=== PATIENT | male | born 1965 | race Caucasian/White ===

== ENCOUNTER 2016-11-28 20:12 | Emergency (ER) | payer MEDICAID ==
[2016-11-28 20:37] VITALS: TEMP 97.3
[2016-11-28] MEDS ORDERED: ONDANSETRON 4 MG/2 ML VIAL IVP ONE (20:46)
[2016-11-28] MEDS ORDERED: NS 1,000 ML IV ONE (20:46)
[2016-11-28] MEDS ORDERED: HYDROmorphONE/DILAUDID 1 MG/ML SYR IVP ONE (20:46)
--- NOTE | 2016-11-28 20:48 | EDPHY ---
H & P Stated Complaint: LLQ ABD PAIN AFTER EATING SOMETHING Time Seen by Provider: 11/28/16 20:43 HPI/ROS: CHIEF COMPLAINT: Left lower quadrant pain HISTORY OF PRESENT ILLNESS: Patient is a 51-year-old man who comes to the emergency department complaining of left lower quadrant pain that began this morning. He has not had a fever. He has vomited twice nonbloody. He has also had nonbloody diarrhea. He has never had this pain before. He is obese but denies any other significant medical history. No history of surgeries. He does not take any medications. REVIEW OF SYSTEMS: Constitutional: denies: chills, fever, recent illness, recent injury EENTM: denies: blurred vision, double vision, nose congestion Respiratory: denies: cough, shortness of breath Cardiac: denies: chest pain, irregular heart rate, lightheadedness, palpitations Gastrointestinal/Abdominal: See HPI Genitourinary: denies: dysuria, frequency, hematuria, pain Musculoskeletal: denies: joint pain, muscle pain Skin: denies: lesions, rash, jaundice, bruising Neurological: denies: headache, numbness, paresthesia, tingling, dizziness, weakness Hematologic/Lymphatic: denies: blood clots, easy bleeding, easy bruising Immunologic/allergic: denies: HIV/AIDS, transplant EXAM: GENERAL: Obese, moderate distress HEAD: Atraumatic, normocephalic. EYES: Pupils equal round and reactive to light, extraocular movements intact, sclera anicteric, conjunctiva are normal. ENT: TMs normal, nares patent, oropharynx clear without exudates. Moist mucous membranes. NECK: Normal range of motion, supple without lymphadenopathy or JVD. LUNGS: Breath sounds clear to auscultation bilaterally and equal. No wheezes rales or rhonchi. HEART: Regular rate and rhythm without murmurs, rubs or gallops. ABDOMEN: Left lower quadrant tenderness, no rebound or guarding BACK: No CVA tenderness, no spinal tenderness, step-offs or deformities EXTREMITIES: Normal range of motion, no pitting or edema. No clubbing or cyanosis. NEUROLOGICAL: Cranial nerves II through XII grossly intact. Normal speech, normal gait. 5/5 strength, normal movement in all extremities, normal sensation PSYCH: Normal mood, normal affect. SKIN: Warm, dry, normal turgor, no visible rashes or lesions. Source: Patient Exam Limitations: No limitations - Personal History Current Tetanus/Diphtheria Vaccine: Yes Current Tetanus Diphtheria and Acellular Pertussis (TDAP): Yes - Medical/Surgical History Hx Asthma: No Hx Chronic Respiratory Disease: No Hx Diabetes: No Hx Cardiac Disease: No Hx Renal Disease: No Hx Cirrhosis: No Hx Alcoholism: Yes Hx HIV/AIDS: No Hx Splenectomy or Spleen Trauma: No Other PMH: HTN, HEP-C, ETOH ABUSE IN P[AST, BACK ISSUES - Family History Significant Family History: No pertinent family hx - Social History Smoking Status: Light smoker Alcohol Use: Sober Drug Use: None Constitutional: Initial Vital Signs Temperature (C) 36.3 C 11/28/16 20:13 Heart Rate 85 11/28/16 20:13 Respiratory Rate 18 11/28/16 20:13 Blood Pressure 184/118 H 11/28/16 20:13 O2 Sat (%) 93 11/28/16 20:13 O2 Delivery Mode Room Air O2 (L/minute) 2 Allergies/Adverse Reactions: penicillin G Allergy (Verified 11/28/16 20:37) Home Medications: Medication Instructions Recorded Gabapentin 600 mg PO 11/28/16 Lisinopril [Zestril 40 mg (*)] 40 mg PO 11/28/16 Ondansetron Odt [Zofran Odt 4 mg 4 mg PO Q4 PRN #20 tab 11/28/16 (RX)] Tamsulosin HCl [Flomax] 0.4 mg PO DAILY #10 cap 11/28/16 oxyCODONE/APAP 5/325 [Percocet 1 - 2 tab PO Q4H PRN #20 tab 11/28/16 5/325] Medical Decision Making - Diagnostics EKG Interpretation: An EKG obtained and was read and documented in trace view. Please see trace view for full reading and report. Sinus rhythm, right bundle branch block and left anterior fascicular block with repolarization abnormality, ED Course/Re-evaluation: 11:00 p.m. we discussed the patient's CT results. He is currently pain free. I will send him home with a prescription for pain medication, Zofran and Flomax. He understands and agrees with this plan. He will follow up with Urology. We discussed that this may take several days or weeks. We discussed indications for returning. Differential Diagnosis: Partial list of the Differential diagnosis considered include but were not limited to; kidney stone, diverticulitis and although unlikely based on the history and physical exam, I also considered appendicitis, obstruction, volvulus , ischemia, aneurysm. I discussed these differential diagnoses and the plan with the patient as well as the usual and expected course. The patient understands that the diagnosis is provisional and that in medicine we are not always correct and that further workup is often warranted. Usual and customary warnings were given. All of the patient's questions were answered. The patient was instructed to return to the emergency department should the symptoms at all worsen or return, otherwise to followup with the physician as we discussed. - Data Points Laboratory Results: Laboratory Results 11/28/16 20:20 11/28/16 20:20 Medications Given: Discontinued Medications Hydromorphone HCl (Dilaudid) 1 mg IVP EDNOW ONE Stop: 11/28/16 20:47 Last Admin: 11/28/16 20:59 Dose: 1 mg Sodium Chloride (Ns) 1,000 mls @ 0 mls/hr IV ONCE ONE; Wide Open PRN Reason: Protocol Stop: 11/28/16 20:47 Last Admin: 11/28/16 20:55 Dose: 1,000 mls Ondansetron HCl (Zofran) 4 mg IVP EDNOW ONE Stop: 11/28/16 20:47 Last Admin: 11/28/16 20:57 Dose: 4 mg Tamsulosin HCl (Flomax) 0.4 mg PO EDNOW ONE Stop: 11/28/16 23:11 Last Admin: 11/28/16 23:10 Dose: 0.4 mg Departure - Departure Disposition: Home, Routine, Self-Care Clinical Impression: Kidney stone on left side Condition: Fair Instructions: Kidney Stones (ED) Referrals: Patient,NotPresent [Unknown] - As per Instructions Prescriptions: Ondansetron Odt [Zofran Odt 4 mg (RX)] 4 mg PO Q4 PRN #20 tab PRN Reason: Nausea & Vomiting oxyCODONE/APAP 5/325 [Percocet 5/325] 1 - 2 tab PO Q4H PRN #20 tab PRN Reason: Pain, Severe Tamsulosin HCl [Flomax] 0.4 mg PO DAILY #10 cap
[2016-11-28 20:50] LABS: % IMMATURE GRANULYOCYTES 0.7 % (0.0-1.1); ADD DIFF? NO; ADD MORPH? NO; ADD SCAN? NO; ATYPICAL LYMPHOCYTE FLAG 0 (0-99); FRAGMENT RBC FLAG 0 (0-99); HEMATOCRIT 54.3 % (40.0-51.0); HEMOGLOBIN 19.6 g/dL (13.7-17.5); LEFT SHIFT FLG 10 (0-99); LIPEMIA HEMOLYSIS FLAG 90 (0-99); MEAN CELL HEMOGLOBIN 30.6 pg (27.9-34.1); MEAN CELL HEMOGLOBIN CONCENTR. 36.1 g/dL (32.4-36.7); MEAN CELL VOLUME 84.8 fL (81.5-99.8); MEAN PLATELET VOLUME 9.9 fL (8.7-11.7); PLATELET CLUMPS FLAG 0 (0-99); PLATELET COUNT 261 10^3/uL (150-400); RED CELL DISTRIBUTION WIDTH 12.9 % (11.5-15.2)
[2016-11-28 21:00] VITALS: RESP 16
[2016-11-28] MEDS ORDERED: IOPAMIDOL (ISOVUE-300) 100 ML BTL ONE (21:10)
--- NOTE | 2016-11-28 21:14 | CPEKG ---
Heart Rate: 86 RR Interval: 698 P-R Interval: 176 QRSD Interval: 154 QT Interval: 424 QTC Interval: 508 P [place]: 37 QRS [place]: -20 T Wave [place]: 32 EKG Severity - ABNORMAL ECG - EKG Impression: SINUS RHYTHM EKG Impression: RBBB AND LAFB EKG Impression: repolarization abnormality Electronically Signed By: Gerry Chiang 28-Nov-2016 21:14:37
[2016-11-28 21:15] LABS: ALANINE AMINOTRANSFERASE 87 IU/L (21-72); ALKALINE PHOSPHATASE 103 IU/L (38-126); ANION GAP 16 mEq/L (8-16); ASPARTATE AMINOTRANSFERASE 69 IU/L (17-59); BILIRUBIN,TOTAL 1.6 mg/dL (0.1-1.4); BILIRUBIN-CONJUGATED 0.7 mg/dL (0.0-0.5); BILIRUBIN-UNCONJUGATED 0.9 mg/dL (0.0-1.1); CALCIUM 10.4 mg/dL (8.5-10.4); CARBON DIOXIDE 21 mEq/l (22-31); CHLORIDE 102 mEq/L (97-110); CREATININE 1.2 mg/dL (0.7-1.3); ETHANOL SERUM < 10 mg/dL (0-10); GLOMERULAR FILTRATION RATE > 60; GLUCOSE 118 mg/dL (70-100); POTASSIUM 3.7 mEq/L (3.5-5.2); SODIUM 139 mEq/L (134-144); TOTAL PROTEIN 8.4 g/dL (6.3-8.2)
[2016-11-28 22:03] LABS: COLOR YELLOW; LEUKOCYTE ESTERASE,URINE NEGATIVE (NEGATIVE); NITRITE,URINE NEGATIVE (NEGATIVE)
[2016-11-28 22:06] LABS: MUCUS TRACE /lpf (NONE-1+); RBC,URINE 50-182 /hpf (0-3)
[2016-11-28] MEDS ORDERED: TAMSULOSIN HCL 0.4 MG CAP PO ONE ×2 (23:10→23:18)
[2016-11-28 23:39] VITALS: BP 158/89; PULSE 86; O2SAT 96
== END 2016-11-28 23:15 | disposition home or self-care (01) ==
DX: N20.0 Calculus of kidney (principal); I10 Essential (primary) hypertension; F17.200 Nicotine dependence, unspecified, uncomplicated
CPT/HCPCS: 96374; G0480; J1170; J2405; Q9967

== ENCOUNTER 2017-03-19 07:04 | Observation (INO) | payer MEDICAID ==
--- NOTE | 2017-03-19 07:16 | CPEKG ---
Heart Rate: 88 RR Interval: 682 P-R Interval: 156 QRSD Interval: 138 QT Interval: 380 QTC Interval: 460 P [place]: 17 QRS [place]: -37 T Wave [place]: 20 EKG Severity - ABNORMAL ECG - EKG Impression: SINUS RHYTHM EKG Impression: PROBABLE LEFT ATRIAL ABNORMALITY EKG Impression: RIGHT BUNDLE BRANCH BLOCK Electronically Signed By: Kaiser Chiu 19-Mar-2017 08:02:35
[2017-03-19] MEDS ORDERED: ASPIRIN 81 MG CHEWABLE TAB PO ONE (07:23)
[2017-03-19 07:44] LABS: % IMMATURE GRANULYOCYTES 0.6 % (0.0-1.1); ABSOLUTE IMMATURE GRANULOCYTES 0.08 10^3/uL (0.00-0.10); ADD DIFF? NO; ADD MORPH? NO; ADD SCAN? NO; ATYPICAL LYMPHOCYTE FLAG 0 (0-99); FRAGMENT RBC FLAG 0 (0-99); HEMATOCRIT 50.8 % (40.0-51.0); HEMOGLOBIN 17.8 g/dL (13.7-17.5); LEFT SHIFT FLG 0 (0-99); LIPEMIA HEMOLYSIS FLAG 90 (0-99); MEAN CELL HEMOGLOBIN 29.7 pg (27.9-34.1); MEAN CELL VOLUME 84.8 fL (81.5-99.8); MEAN PLATELET VOLUME 9.5 fL (8.7-11.7); PLATELET CLUMPS FLAG 0 (0-99); PLATELET COUNT 203 10^3/uL (150-400); RED BLOOD CELL COUNT 5.99 10^6/uL (4.40-6.38); RED CELL DISTRIBUTION WIDTH 13.5 % (11.5-15.2)
[2017-03-19 07:50] LABS: ANION GAP 10 mEq/L (8-16); CALCIUM 9.4 mg/dL (8.5-10.4); CARBON DIOXIDE 24 mEq/l (22-31); CHLORIDE 107 mEq/L (97-110); CREATININE 0.8 mg/dL (0.7-1.3); ETHANOL SERUM < 10 mg/dL (0-10); GLOMERULAR FILTRATION RATE > 60; GLUCOSE 101 mg/dL (70-100); POTASSIUM 4.3 mEq/L (3.5-5.2); SODIUM 141 mEq/L (134-144)
[2017-03-19 08:01] LABS: TROPONIN I < 0.012 ng/mL (0.000-0.034)
--- NOTE | 2017-03-19 08:01 | EDPHY ---
H & P Time Seen by Provider: 03/19/17 07:59 HPI/ROS: Chief complaint. Chest pain HPI. Patient is a 52-year-old male presents with chest discomfort that began at midnight. He describes as left anterior chest radiating through to his back. He describes as squeezing and pressure. It is worse both with deep breathing and with exertion. Not short of breath. No recent fever or cough. No abdominal pain or unusual leg pain or swelling. No similar symptoms previously. 2 weeks ago stent placed in the ureter for kidney stone. He has been drinking alcohol little bit to help with the chest discomfort since midnight. ROS Constitutional. no fever/chills, no weakness Eyes. no problems with vision ENT. no sore throat, no nasal drainage Cardiovascular. Chest pain Respiratory. no shortness of breath, no cough Abdominal. no abdominal pain, no nausea/vomiting, no diarrhea . no problems urinating MS. no calf pain/swelling, no neck/back pain, no joint pain Skin. no rash Lymph. no swollen glands Neuro. no headache, no dizziness, no difficulty walking or with speech Past Medical/Surgical History: Past medical history is significant for hypertension, hep C, alcoholism, chronic back pain Social History: Single, daily smoker, recent alcohol Smoking Status: Light smoker Physical Exam: General Appearance: Alert well-developed male mild distress vital signs are stable Eyes: Pupils equal and round no pallor or injection. ENT, Mouth: Mucous membranes are moist. Respiratory: There are no retractions, lungs are clear to auscultation. Cardiovascular: Regular rate and rhythm. Gastrointestinal: Abdomen is soft and nontender, no masses, bowel sounds normal. Neurological: Awake and alert, sensory and motor exams grossly normal. Skin: Warm and dry, no rashes. Musculoskeletal: Neck is supple nontender. Extremities symmetrical, full range of motion. Psychiatric: Patient is oriented X 3, there is no agitation. Constitutional: Initial Vital Signs Temperature (C) 36.6 C 03/19/17 07:09 Heart Rate 87 03/19/17 07:09 Respiratory Rate 18 03/19/17 07:09 Blood Pressure 150/96 H 03/19/17 07:09 O2 Sat (%) 95 03/19/17 07:09 O2 Delivery Mode Room Air Allergies/Adverse Reactions: penicillin G Allergy (Verified 11/28/16 20:37) Home Medications: Medication Instructions Recorded Gabapentin 600 mg PO 11/28/16 Lisinopril [Zestril 40 mg (*)] 40 mg PO 11/28/16 Ondansetron Odt [Zofran Odt 4 mg 4 mg PO Q4 PRN #20 tab 11/28/16 (RX)] Tamsulosin HCl [Flomax] 0.4 mg PO DAILY #10 cap 11/28/16 oxyCODONE/APAP 5/325 [Percocet 1 - 2 tab PO Q4H PRN #20 tab 11/28/16 5/325] Medical Decision Making - Diagnostics EKG Interpretation: EKG interpreted by me shows a normal sinus rhythm with normal interval. Left axis deviation and right bundle branch block and probable left anterior fascicular block. No significant ST elevation or depression. No arrhythmia. The rate is 88 Not changed from previous EKG in November 2016 Imaging Results: Imaging Impressions Chest X-Ray 03/19/17 07:39 Impression: Possible pulmonary venous hypertension. Consider obtaining a routine PA and lateral chest when the patient is clinically able. Results discussed with Dr. Kaiser Chiu. Chest x-ray reviewed by me shows probable pulmonary hypertension. No pneumonia or pneumothorax. Discussion with Dr. Ferguson, radiology, who agrees with the thought of pulmonary hypertension Procedures: IV normal saline, monitor. Aspirin in the ED ED Course/Re-evaluation: On re-evaluation at 8:30 a.m. patient is stable though continues to have chest discomfort. The patient and I discussed imaging and lab results. We discussed treatment plan including recommendation for admission for further evaluation for his continuing chest discomfort. He expresses understanding and agreement I consulted and discussed the case with Dr. karen Camilo, hospitalist, who agrees to the admission Differential Diagnosis: I have considered pulmonary hypertension, acute coronary syndrome, pneumonia, pulmonary embolus. I am concerned the patient is having acute coronary syndrome - Data Points Laboratory Results: Laboratory Results 03/19/17 07:15 03/19/17 07:15 03/19/17 03/19/17 03/19/17 07:23 07:15 07:15 WBC 13.52 10^3/uL H 10^3/uL (3.80-9.50) RBC 5.99 10^6/uL 10^6/uL (4.40-6.38) Hgb 17.8 g/dL H g/dL (13.7-17.5) Hct 50.8 % % (40.0-51.0) MCV 84.8 fL fL (81.5-99.8) MCH 29.7 pg pg (27.9-34.1) MCHC 35.0 g/dL g/dL (32.4-36.7) RDW 13.5 % % (11.5-15.2) Plt Count 203 10^3/uL 10^3/uL (150-400) MPV 9.5 fL fL (8.7-11.7) Neut % (Auto) 75.8 % H % (39.3-74.2) Lymph % (Auto) 12.6 % L % (15.0-45.0) Martin % (Auto) 8.8 % % (4.5-13.0) Eos % (Auto) 1.6 % % (0.6-7.6) Baso % (Auto) 0.6 % % (0.3-1.7) Nucleat RBC Rel Count 0.0 % % (0.0-0.2) Absolute Neuts (auto) 10.24 10^3/uL H 10^3/uL (1.70-6.50) Absolute Lymphs (auto) 1.71 10^3/uL 10^3/uL (1.00-3.00) Absolute Monos (auto) 1.19 10^3/uL H 10^3/uL (0.30-0.80) Absolute Eos (auto) 0.22 10^3/uL 10^3/uL (0.03-0.40) Absolute Basos (auto) 0.08 10^3/uL 10^3/uL (0.02-0.10) Absolute Nucleated RBC 0.00 10^3/uL 10^3/uL (0-0.01) Immature Gran % 0.6 % % (0.0-1.1) Immature Gran # 0.08 10^3/uL 10^3/uL (0.00-0.10) D-Dimer < 0.27 ug/mLFEU ug/mLFEU (0.00-0.50) Sodium 141 mEq/L mEq/L (134-144) Potassium 4.3 mEq/L mEq/L (3.5-5.2) Chloride 107 mEq/L mEq/L (97-110) Carbon Dioxide 24 mEq/l mEq/l (22-31) Anion Gap 10 mEq/L mEq/L (8-16) BUN 14 mg/dL mg/dL (7-23) Creatinine 0.8 mg/dL mg/dL (0.7-1.3) Estimated GFR > 60 Glucose 101 mg/dL H mg/dL (70-100) Calcium 9.4 mg/dL mg/dL (8.5-10.4) Troponin I < 0.012 ng/mL ng/mL (0.000-0.034) Ethyl Alcohol < 10 mg/dL mg/dL (0-10) Medications Given: Discontinued Medications Aspirin (Aspirin) 324 mg PO EDNOW ONE Stop: 03/19/17 07:24 Last Admin: 03/19/17 07:26 Dose: 324 mg Departure - Departure Disposition: [facility] Clinical Impression: Chest pain Qualifiers: Chest pain type: unspecified Qualified Code(s): R07.9 - Chest pain, unspecified Condition: Fair
[2017-03-19] MEDS ORDERED: ACETAMINOPHEN 325 MG TAB PO PRN (08:37)
[2017-03-19] MEDS ORDERED: ONDANSETRON 4 MG/2 ML VIAL IVP PRN (08:37)
[2017-03-19] MEDS ORDERED: ONDANSETRON DISINTEGRATING 4 MG TAB PO PRN (08:37)
[2017-03-19] MEDS ORDERED: LIDOCAINE 1% 300 MG/30 ML SDV ONE (13:25)
[2017-03-19] MEDS ORDERED: MIDAZOLAM 2 MG/2 ML VIAL ONE ×2 (13:25)
[2017-03-19] MEDS ORDERED: fentaNYL 100 MCG/2 ML INJ ONE (13:25)
[2017-03-19] MEDS ORDERED: IOPAMIDOL (ISOVUE-370) 150 ML BTL IV ONE (13:25)
[2017-03-19] MEDS ORDERED: NITROGLYCERIN 0.4 MG BTL SL PRN (13:42)
[2017-03-19] MEDS ORDERED: TEMAZEPAM 15 MG CAP PO PRN (13:42)
[2017-03-19] MEDS: NICOTINE 21 MG/24 HR PATCH TD SCH (13:55)
--- NOTE | 2017-03-19 13:57 | CPR ---
[f rep st] NONINVASIVE CARDIAC PROCEDURE REPORT DATE OF PROCEDURE: 03/19/2017 PROCEDURE PERFORMED: Treadmill stress test. REASON FOR TEST: 1. Chest pain. 2. Family history of CO at age 60, grandfather. ORDERING PHYSICIAN: Molly Garcia MD, Hospitalist. SUPERVISING PHYSICIAN: Nura Hearn MD RESTING: Resting EKG shows a regular sinus rhythm with right bundle branch block. Resting heart rat e 87, and regular. He is hypertensive, blood pressure 152/92. STRESS PORTION: He was exercised according to the Randolph protocol for a total of 3 minutes and 56 sec onds. Peak blood pressure 164/98, peak heart rate 100, exercise stopped due to chest pain rated 4/10 . There were no EKG changes. RECOVERY: The chest pain subsided within 1 minute of rest. Resting heart rate 100, resting blood pr essure 148/98. No EKG changes. He is stable to return to his room. RECOMMENDATION: For Lexiscan nuclear stress test versus cardiac angiogram with Dr. Nura Hearn. [facility] discuss further with Dr. Nura Hearn. Chester Collins MD, Hospitalist, was notified of test resul ts. She is in agreement with this plan. /[id number]/MODL
--- NOTE | 2017-03-19 15:12 | GHP ---
[f rep st] HISTORY AND PHYSICAL DATE OF ADMISSION: 03/19/2017 CHIEF COMPLAINT: Chest pain. HISTORY OF PRESENT ILLNESS: A 52-year-old male with a history of hepatitis C, alcoholism, who presen ts after being woken up the morning of presentation with severe chest pain of the left side of his ch est. The patient reports that he was in his normal state of health the evening prior with normal int wei and exertional capacity, went to sleep and awoke with a heavy, tightening sensation on the left s javi of his chest. The patient attempted to drink a pint of vodka to see if it could help with the pa in and it was unsuccessful; therefore, presented to the emergency department for evaluation. Denies any associated shortness of breath with the pain. Does report pleuritic component occasionally and t he sensation that he could exacerbate the pain while moving his left arm and/or shoulder. Denies any associated nausea, diaphoresis. Denies any diarrhea, dysuria, hematuria, lower extremity edema, isis lgias, arthralgias. Denies any headache or dizziness. Denies palpitations. PAST MEDICAL HISTORY: 1. Hepatitis C status post interferon. 2. Hypertension. 3. Alcoholism. 4. Chronic back pain. SOCIAL HISTORY: Positive for a pack a day smoking. Patient is currently in alcohol and drug treatme nt program so has been sober with the exception of the vodka he drink the morning of presentation. FAMILY HISTORY: Negative for coronary artery disease. Does have relatives older in life with diagno ses of heart disease. REVIEW OF SYSTEMS: A 10-point review of systems is negative with the exception of that reported in t he HPI. PHYSICAL EXAMINATION: VITAL SIGNS: Blood pressure 153/97, heart rate 96, respiratory rate 24, 95% o n room air, 36.7. GENERAL: This is a large, middle-aged male in no acute distress. HEENT: Notable for moist mucous membranes. Eye exam is negative for any icterus. CARDIAC: Patient is regular rat e and rhythm. A quiet systolic murmur is appreciated. PULMONARY: Good respiratory effort. Clear t o auscultation bilaterally. GASTROINTESTINAL: The patient is obese. Has positive bowel sounds. MU SCULOSKELETAL: Negative for any lower extremity edema. Patient did have reproducible chest pain on deep palpation at his mid clavicular line on his left chest. SKIN: Negative for any rashes. NEUROL OGIC: He is alert and oriented x3. PSYCHIATRIC: He is pleasant and cooperative on interview and ex amination. DATA: Troponin less than 0.012. Creatinine 0.8. White count 13.5, platelets of 203. The EKG, whic h I personally reviewed and interpreted, showed no acute ST-T changes, sinus rhythm, normal access. Chest x-ray, which I personally reviewed and interpreted, showed no acute infiltrates or edema. ASSESSMENT AND PLAN: This is a 52-year-old male presenting with left-sided chest pain. 1. Acute chest pain. The patient is obese and has hypertension. Smokes a pack of cigarettes a day and a remote family history of heart disease. So has several risk factors for cardiac ischemia. The pain and the reproducible pain are atypical obviously. Will cycle troponins and send for treadmill testing if he rules out. 2. Tobacco abuse. Will write for a nicotine patch. 3. Alcohol abuse. The patient is actively in a program which monitors alcohol and drug intake in ex change for housing and work. 4. Acute leukocytosis. Patient does not have a concerning review for occult infection. May be stre ss related to the acute presentation in the ED. Will recheck in the morning. Will not pursue additi onal diagnostics as the patient remains afebrile and without complaint. PROPHYLAXIS: With Lovenox. DIET: Cardiac. DISPOSITION: I expect in less than 2 midnights if the patient rules out and has negative stress test ing. I have discussed the case with the emergency room physician. Patient will be triaged to the [facility] for telemetry and care. /[id number]/MODL
[2017-03-19] MEDS: GABAPENTIN 400 MG CAP PO SCH ×2 (15:22→22:00)
--- NOTE | 2017-03-19 16:37 | CPR ---
[f rep st] NONINVASIVE CARDIAC PROCEDURE REPORT PROCEDURE: Treadmill stress test ORDERING PHYSICIAN: Molly Garcia MD, hospitalist. REASON FOR TEST: Chest pain. FINDINGS: Resting EKG shows a regular sinus rhythm with right bundle branch block. He is hypertensiv e. Resting heart rate /[id number]/MODL
[2017-03-20 03:48] LABS: % IMMATURE GRANULYOCYTES 0.5 % (0.0-1.1); ABSOLUTE IMMATURE GRANULOCYTES 0.05 10^3/uL (0.00-0.10); ADD DIFF? NO; ADD MORPH? NO; ADD SCAN? NO; ATYPICAL LYMPHOCYTE FLAG 0 (0-99); FRAGMENT RBC FLAG 0 (0-99); HEMATOCRIT 49.5 % (40.0-51.0); HEMOGLOBIN 17.3 g/dL (13.7-17.5); LEFT SHIFT FLG 0 (0-99); LIPEMIA HEMOLYSIS FLAG 90 (0-99); MEAN CELL HEMOGLOBIN 29.4 pg (27.9-34.1); MEAN CELL HEMOGLOBIN CONCENTR. 34.9 g/dL (32.4-36.7); MEAN PLATELET VOLUME 9.7 fL (8.7-11.7); PLATELET CLUMPS FLAG 0 (0-99); PLATELET COUNT 162 10^3/uL (150-400); RED BLOOD CELL COUNT 5.89 10^6/uL (4.40-6.38); RED CELL DISTRIBUTION WIDTH 13.2 % (11.5-15.2)
[2017-03-20 04:09] LABS: INR 1.01 (0.83-1.16); PROTIME(PATIENT) 13.2 SEC (12.0-15.0)
[2017-03-20 04:10] LABS: ANION GAP 9 mEq/L (8-16); APTT 27.1 SEC (23.0-38.0); CALCIUM 8.9 mg/dL (8.5-10.4); CARBON DIOXIDE 23 mEq/l (22-31); CHLORIDE 106 mEq/L (97-110); CHOLESTEROL 123 mg/dL (140-220); CHOLESTEROL/HDL RATIO 3.97 RATIO (1.00-4.97); CREATININE 0.7 mg/dL (0.7-1.3); GLOMERULAR FILTRATION RATE > 60; GLUCOSE 106 mg/dL (70-100); HIGH DENSITY LIPOPROTEIN 31 mg/dL (40-65); LDL/HDL RATIO 2.45 RATIO (1.00-3.64); LOW DENSITY LIPOPROTEIN 76 mg/dL (80-100); MAGNESIUM 1.8 mg/dL (1.6-2.3); NON-HIGH DENSITY LIPOPROTEIN 92 mg/dL (90-129); POTASSIUM 4.1 mEq/L (3.5-5.2); SODIUM 138 mEq/L (134-144); TRIGLYCERIDE 84 mg/dL (40-150); VERY LOW DENSITY LIPOPROTEINS 16 mg/dL (8-25)
[2017-03-20] MEDS ORDERED: ASPIRIN EC 325 MG TAB PO ONE (06:00)
[2017-03-20] MEDS ORDERED: FAMOTIDINE 20 MG TAB PO ONE (06:00)
[2017-03-20] MEDS ORDERED: NS 1,000 ML IV ONE (06:00)
[2017-03-20] MEDS ORDERED: diphenhydrAMINE 25 MG CAP PO ONE (06:00)
[2017-03-20] MEDS ORDERED: DIAZEPAM 5 MG TAB PO ONE (06:00)
[2017-03-20 07:24] VITALS: TEMP 97.8
--- NOTE | 2017-03-20 08:19 | PDPROPOC ---
Sedation Plan of Care Sedation Plan of Care: vital signs stable, mental status noted, patient educated of risks, benefits, alternatives, patient can tolerate sedation ASA Classification: ASA 2 Planned drugs: fentanyl, midazolam Mallampati Score: Class 2 Mallampati Reference Image: Patient passed 3-3-2 rule?: Yes
--- NOTE | 2017-03-20 08:19 | PDHPUP ---
History & Physical Update H&P update statement: This history and physical update is based on an assessment of the patient which was completed after admission or registration (within 24 hours), but prior to the surgery/procedure. H&P update: H&P reviewed & patient examined, no change in patient's condition since H&P completed
--- NOTE | 2017-03-20 08:22 | CPEKG ---
Heart Rate: 74 RR Interval: 811 P-R Interval: 172 QRSD Interval: 138 QT Interval: 416 QTC Interval: 462 P [place]: 13 QRS [place]: -43 T Wave [place]: 25 EKG Severity - ABNORMAL ECG - EKG Impression: SINUS RHYTHM EKG Impression: RBBB AND LAFB Electronically Signed By: Phuc Lyles 20-Mar-2017 08:40:20
[2017-03-20] MEDS ORDERED: fentaNYL 100 MCG/2 ML INJ ONE ×2 (08:33→09:02)
[2017-03-20] MEDS ORDERED: LIDOCAINE 1% 300 MG/30 ML SDV ONE (08:33)
[2017-03-20] MEDS ORDERED: IOPAMIDOL (ISOVUE-370) 150 ML BTL IV ONE (08:34)
[2017-03-20] MEDS ORDERED: MIDAZOLAM 2 MG/2 ML VIAL ONE (08:34)
[2017-03-20] MEDS ORDERED: LISINOPRIL 10 MG TAB PO SCH (09:00)
--- NOTE | 2017-03-20 09:01 | PDDXCAT ---
Diagnostic Cath Note - . Date: 03/20/17 Patient Problems: Problems Problem Status Onset Chest pain Acute
[2017-03-20] MEDS ORDERED: ATROPINE SULFATE 1 MG/10 ML SYR IVP PRN (09:49)
--- NOTE | 2017-03-20 11:08 | CPIP ---
[f rep st] INVASIVE CARDIAC PROCEDURE DATE OF PROCEDURE: 03/20/2017 PROCEDURE: Coronary angiography. Left ventriculography. INDICATION: Acute coronary syndrome. ACCESS: Patient was prepped and draped in sterile fashion. 1% lidocaine was used to anesthetize the right inguinal region. A 6[place]izen [place] introducer sheath was placed selectively into the right common fe moral artery via modified Seldinger technique. CORONARY ANGIOGRAPHY: A 6-Citizen [place] JL4 was advanced to the left main coronary artery, and images obtai adonay. The left main coronary artery trifurcated into LAD, ramus, and circumflex coronary arteries. T he left main coronary artery appeared normal. The left anterior descending coronary artery gave rise to one prominent diagonal branch. The left anterior descending coronary artery and its diagonal bra nch appeared normal. The ramus coronary artery was small, and there was a small [id number] a rtery fistula. The circumflex coronary artery is a large vessel but is nondominant. Circumflex scot nary artery gave rise to 2 OM branches. The circumflex coronary artery and its complement of OM bran ches appeared normal. A 6-Citizen [place] JR4 was advanced to the right coronary artery and was obtained. Th e right coronary artery was dominant. The right coronary artery appeared normal. LEFT VENTRICULOGRAPHY: A 6-Citizen [place] pigtail catheter was advanced into the left ventricle, and images obtained. Left ventricle is normal in size and had normal systolic function; estimated ejection frac tion 60%. COMPLICATIONS: None. CONCLUSIONS: 1. Normal coronary arteries. 2. Normal left ventricular systolic function. 3. Incidental small AV fistula noted. /[id number]/MODL
[2017-03-20 11:32] VITALS: O2SAT 96
[2017-03-20] MEDS: GABAPENTIN 400 MG CAP PO SCH (11:34)
[2017-03-20] MEDS: NICOTINE 21 MG/24 HR PATCH TD SCH (11:36)
[2017-03-20 12:35] VITALS: BP 149/95; PULSE 79; RESP 18
--- NOTE | 2017-03-20 14:08 | GDS ---
[f rep st] DISCHARGE SUMMARY DISCHARGE DIAGNOSES: Include: 1. Chest pain, thought noncardiac. 2. Alcohol abuse, in active treatment program. 3. Hepatitis C, status post interferon. 4. Hypertension. 5. Chronic back pain. HISTORY OF PRESENT ILLNESS: A 52-year-old male who presents with complaints of chest pain that began the morning of presentation. For details of patient's initial presentation, please see the History and Physical dated 03/19/2017. CONSULTATIVE SERVICES: Include Cardiology. PROCEDURES: On 03/19/2017, patient underwent cardiac stress test for which he developed active sympt oms. Stress test was discontinued, and the patient was taken to cardiac catheterization the followin g day, that showed no significant coronary artery disease. HOSPITAL COURSE: By issue: 1. Chest pain. The patient did rule out and, as above, underwent a terminated stress test and ultim ately cardiac cath that showed no concerning heart disease. The patient will be discharged on his no rmal home medications for hypertension and follow up with his outpatient primary care provider. 2. Hypertension. Patient's blood pressures have ranged in the 130s to 150s during this hospital sta y. He will be continued on his outpatient dosing of lisinopril. 3. Alcohol abuse. The patient is actively in a treatment program which provides both work and housi ng during active sobriety. He will be discharged back to this program on the day of this dictation. MEDICATIONS AT THE TIME OF TRANSFER: Please reference med rec printed on 03/20/2017. PENDING STUDIES: At the time of this dictation, are none. FOLLOWUP APPOINTMENTS: Include with his primary care provider in the next 3-4 weeks post disposition for general followup of his long-standing hypertension and active attempts at sobriety. I spent greater than 30 minutes in the planning and coordination of this discharge. /[id number]/MODL
--- NOTE | 2017-03-20 16:00 | ASMTCMCOM ---
CM Note CM Note Notes: 03/20/2017 Case Management Note: Met w/pt. Pt lives at a fdc house called the [facility]. Nura and Kelli are welfare case worker ([phone]) at the [facility]. Case Management left several messages w/Kelli today. Pt reports participating in a ready to work program in exchange for housing. Pt reports his Mother Zina ([phone]) lives with his sister Gauri ([phone]) in [place]. Both provide support for patient. Pt attends ETOH avoidance classes 2x/week through the [facility]. He also relies on his sponsor Yg for support. Pt attends therapy/counseling once a week in [place] on [facility] w/a provider named Yg Grove. Pt reports he is scheduled for eval by psychiatrist in March through the same practice as Yg Grove. Pt did not know the name of the psychiatrist. Pt well resourced through [facility]. Case Management d/c poc: Back to [facility] supports with medical follow up as directed. Family aware of d/c. Date Signed: 03/20/2017 03:59 PM Electronically Signed By:Ale Palacios RN
--- NOTE | 2017-03-20 16:01 | ASDISCHSUM ---
Discharge Information Plan Status:Home with No Needs Medically Cleared to Leave: Discharge Date:03/20/2017 02:07 PM CM D/C Disposition:Home, Routine, Self-Care ADT D/C Disposition:Home, Routine, Self-Care Projected Discharge Date:03/20/2017 02:07 PM Transportation at D/C:Family Discharge Delay Reason: Follow-Up Date:03/20/2017 02:07 PM Discharge Slot: Final Diagnosis: Placement Information Patient Contact Information Contact Name:JOSE M Relationship:Sister Address: Work Phone: [facility]: [facility] Phone: State/Zip Code: Email: Financial Information Financial Class: Primary Plan Desc:[employer]ICA[employer] Primary Plan Number:[id number] Secondary Plan Desc: Secondary Plan Number: Assessment Information [facility] CM Progress Note CM Note CM Note Notes: 03/20/2017 Case Management Note: Met w/pt. Pt lives at a group home house called the [facility]. Nura and Kelli are sample case porter ([phone]) at the [facility]. Case Management left several messages w/Kelli today. Pt reports participating in a ready to work program in exchange for housing. Pt reports his Mother Zina ([phone]) lives with his sister Gauri ([phone]) in [place]. Both provide support for patient. Pt attends ETOH avoidance classes 2x/week through the [facility]. He also relies on his sponsor Yg for support. Pt attends therapy/counseling once a week in [place] on [facility] w/a provider named Yg Grove. Pt reports he is scheduled for eval by psychiatrist in March through the same practice as Yg Grove. Pt did not know the name of the psychiatrist. Pt well resourced through [facility]. Case Management d/c poc: Back to [facility] supports with medical follow up as directed. Family aware of d/c. Date Signed: 03/20/2017 03:59 PM Electronically Signed By:Ale Palacios RN Intervention Information
== END 2017-03-20 14:07 | disposition home or self-care (01) ==
LOC: INTOOBSV 08:32 → F2W 10:11
PROVIDERS: ADMIT Hospitalist; ATTEND Hospitalist
PROC: B2111ZZ Fluoroscopy of Multiple Coronary Arteries using Low Osmolar Contrast (ICD-10-PCS; principal; 2017-03-19)
PROC: B2151ZZ Fluoroscopy of Left Heart using Low Osmolar Contrast (ICD-10-PCS; principal; 2017-03-19)
PROC: 4A023N7 Measurement of Cardiac Sampling and Pressure, Left Heart, Percutaneous Approach (ICD-10-PCS; principal; 2017-03-19)
DX: R07.9 Chest pain, unspecified (principal); F10.20 Alcohol dependence, uncomplicated; B19.20 Unspecified viral hepatitis C without hepatic coma; I10 Essential (primary) hypertension; M54.9 Dorsalgia, unspecified
CPT/HCPCS: 71010; 93005; 93017; 93458; G0378; C1760; G0480; J1644; J2250; J3010; Q9967

== ENCOUNTER → 2017-11-20 | Outpatient (CLI) | payer MEDICAID | LOC: FIMAGING 08:21 | PROVIDERS: ATTEND Family Medicine | DX: M12.88 Other specific arthropathies, not elsewhere classified, other specified site (principal); M99.73 Connective tissue and disc stenosis of intervertebral foramina of lumbar region ==

== ENCOUNTER 2018-04-30 07:10 | Emergency (ER) | payer MEDICAID ==
--- NOTE | 2018-04-30 07:20 | EDPHY ---
H & P Stated Complaint: cough n/v/d Time Seen by Provider: 04/30/18 07:19 HPI/ROS: CHIEF COMPLAINT: Cough, nausea, vomiting and diarrhea HISTORY OF PRESENT ILLNESS: The patient presents to the ED with a history of cough, vomiting and diarrhea for the past 4 days. The patient reports associated fever and myalgias. He has generalized abdominal discomfort. He denies any skin rash, numbness or weakness. He does complain of a mild frontal headache. The patient does have a history of alcohol abuse. He reports he has been sober since 06/10/2017. The patient also has a history of hepatitis-C. The patient does report that his sister was sick with similar symptoms last week. REVIEW OF SYSTEMS: A comprehensive 10 point review of systems is otherwise negative aside from elements mentioned in the history of present illness. Source: Patient - Personal History Current Tetanus Diphtheria and Acellular Pertussis (TDAP): Yes - Medical/Surgical History Hx Asthma: No Hx Chronic Respiratory Disease: No Hx Diabetes: No Hx Cardiac Disease: No Hx Renal Disease: No Hx Cirrhosis: No Hx Alcoholism: Yes Hx HIV/AIDS: No Hx Splenectomy or Spleen Trauma: No Other PMH: HTN, HEP-C, ETOH ABUSE IN P[AST, BACK ISSUES, kidney stones/ stent - Social History Smoking Status: Current every day smoker - Physical Exam Exam: General Appearance: Obese male, appears uncomfortable Eyes: Pupils equal and round no pallor or injection ENT, Mouth: Mucous membranes moist Respiratory: Slight tachypnea, rhonchorous breath sounds Cardiovascular: Tachycardic Gastrointestinal: Protuberant, no focal tenderness Neurological: 5/5 strength all 4 extremities Skin: Warm and dry, no rashes Musculoskeletal: Neck is supple nontender Extremities: symmetrical, full range of motion Constitutional: Initial Vital Signs Temperature (C) 37.3 C 04/30/18 07:13 Heart Rate 132 H 04/30/18 07:13 Respiratory Rate 20 04/30/18 07:13 Blood Pressure 164/114 H 04/30/18 07:13 O2 Sat (%) 19 L 04/30/18 07:13 O2 Delivery Mode Room Air Allergies/Adverse Reactions: penicillin G Allergy (Verified 04/30/18 07:13) Home Medications: Medication Instructions Recorded Gabapentin [Neurontin 400 MG (*)] 800 mg PO TID 10/02/17 Lisinopril [Zestril 10 mg (*)] 10 mg PO DAILY 03/19/17 Meloxicam [Mobic 15 mg] 15 mg PO DAILY 03/19/17 Albuterol [Proventil Inhaler HFA 1 - 2 puffs IH Q4H #1 mdi 04/30/18 (*)] Ondansetron Odt [Zofran Odt] 4 mg PO Q4PRN PRN #20 tab 04/30/18 Medical Decision Making - Diagnostics Imaging Results: Chest x-ray PA/lateral: Images reviewed by myself, negative for focal infiltrate however bronchitis is noted. ED Course/Re-evaluation: Medical decision making: The patient presents to the ED with cough, vomiting and diarrhea with a differential diagnosis which includes pneumonia, viral syndrome, gastroenteritis and dehydration. ED course: The patient did appear clinically dehydrated. He had an IV established. He received a L of normal saline. Patient was noted to be 91% on room air. He was slightly tachycardic. He was taken for a chest x-ray which demonstrates no evidence of an obvious pneumonia by my interpretation. The patient has no evidence of a significant metabolic derangement. The patient presents to the ED with a viral syndrome without evidence of an obvious bacterial source of infection. The patient is feeling better after receiving IV fluid rehydration. I do feel he is appropriate for outpatient management with albuterol and Zofran. He is currently 4 days into a viral illness and would not be a candidate for Tamiflu in the event he has influenza. The patient will be discharged home with customary aftercare instructions and return precautions. - Data Points Laboratory Results: Laboratory Results 04/30/18 07:30 04/30/18 07:30 04/30/18 04/30/18 07:30 07:30 WBC 13.69 10^3/uL H 10^3/uL (3.80-9.50) RBC 6.77 10^6/uL H 10^6/uL (4.40-6.38) Hgb 19.7 g/dL H g/dL (13.7-17.5) Hct 55.9 % H % (40.0-51.0) MCV 82.6 fL fL (81.5-99.8) MCH 29.1 pg pg (27.9-34.1) MCHC 35.2 g/dL g/dL (32.4-36.7) RDW 12.7 % % (11.5-15.2) Plt Count 145 10^3/uL L 10^3/uL (150-400) MPV 10.0 fL fL (8.7-11.7) Neut % (Auto) Not Reported Lymph % (Auto) Not Reported Hill % (Auto) Not Reported Eos % (Auto) Not Reported Baso % (Auto) Not Reported Nucleat RBC Rel Count Not Reported Absolute Neuts (auto) Not Reported Absolute Lymphs (auto) Not Reported Absolute Monos (auto) Not Reported Absolute Eos (auto) Not Reported Absolute Basos (auto) Not Reported Absolute Nucleated RBC Not Reported Immature Gran % Not Reported Seg Neutrophils % 66.0 % % Band Neutrophils % 18.4 % % Lymphocytes % 4.9 % % Monocytes % 10.7 % % Eosinophils % 0.0 % % Basophils % 0.0 % % Metamyelocytes % 0.0 % % Myelocytes % 0.0 % % Promyelocytes % 0.0 % % Blast Cells % 0.0 % % Immature Gran # Not Reported Absolute Seg Neuts 9.04 10^3/uL H 10^3/uL (1.70-6.50) Absolute Band Neuts 2.52 10^3/uL H 10^3/uL (0.00-0.70) Absolute Lymphocytes 0.67 10^3/uL L 10^3/uL (1.00-3.00) Absolute Monocytes 1.46 10^3/uL H 10^3/uL (0.30-0.80) Absolute Eosinophils 0.00 10^3/uL L 10^3/uL (0.03-0.40) Absolute Basophils 0.00 10^3/uL L 10^3/uL (0.02-0.10) Absolute Metamyelocyte 0.00 10^3/mL 10^3/mL (0.00-0.00) Absolute Myelocytes 0.00 10^3/mL 10^3/mL (0.00-0.00) Absolute Promyelocytes 0.00 10^3/uL 10^3/uL (0.00-0.00) Absolute Plasma Cells 0.00 10^3/uL 10^3/uL (0.00-0.00) Nucleated RBCs 0 /100 WBC /100 WBC (0-0) Absolute Blast Cells 0.00 10^3/uL 10^3/uL (0.00-0.00) Plasma Cells % 0.0 % % Platelet Estimate ADEQUATE (ADEQ) Sodium 139 mEq/L mEq/L (135-145) Potassium 3.5 mEq/L mEq/L (3.3-5.0) Chloride 99 mEq/L mEq/L (97-110) Carbon Dioxide 24 mEq/l mEq/l (22-31) Anion Gap 16 mEq/L H mEq/L (6-14) BUN 11 mg/dL mg/dL (7-23) Creatinine 0.8 mg/dL mg/dL (0.7-1.3) Estimated GFR > 60 Glucose 98 mg/dL mg/dL (70-100) Calcium 9.0 mg/dL mg/dL (8.5-10.4) Total Bilirubin 1.3 mg/dL mg/dL (0.1-1.4) Conjugated Bilirubin 0.5 mg/dL mg/dL (0.0-0.5) Unconjugated Bilirubin 0.8 mg/dL mg/dL (0.0-1.1) AST 85 IU/L H IU/L (17-59) ALT 75 IU/L H IU/L (21-72) Alkaline Phosphatase 62 IU/L IU/L (38-126) Total Protein 7.6 g/dL g/dL (6.3-8.2) Albumin 4.5 g/dL g/dL (3.5-5.0) Lipase 44 IU/L IU/L (23-300) Medications Given: Discontinued Medications Sodium Chloride (Ns) 1,000 mls @ 0 mls/hr IV EDNOW ONE; Wide Open PRN Reason: Protocol Stop: 04/30/18 07:22 Last Admin: 04/30/18 07:43 Dose: 1,000 mls Ondansetron HCl (Zofran) 4 mg IVP EDNOW ONE Stop: 04/30/18 07:22 Last Admin: 04/30/18 07:45 Dose: 4 mg Departure - Departure Disposition: Home, Routine, Self-Care Clinical Impression: Bronchitis, Viral syndrome Condition: Good Instructions: Acute Bronchitis (ED) Additional Instructions: 1. Zofran as needed for nausea and vomiting. 2. You may take Imodium as needed for diarrhea. 3. Please use albuterol inhaler up to every 2-4 hours as needed for cough. 4. Please return to the ED for markedly worsening symptoms or other concerns. Referrals: VONNIE BOWIE [Non Staff Provider (MD)] - As per Instructions Prescriptions: Albuterol [Proventil Inhaler HFA (*)] 1 - 2 puffs IH Q4H #1 mdi Ondansetron Odt [Zofran Odt] 4 mg PO Q4PRN PRN #20 tab PRN Reason: For Nausea
[2018-04-30] MEDS ORDERED: ONDANSETRON 4 MG/2 ML VIAL IVP ONE (07:21)
[2018-04-30] MEDS ORDERED: NS 1,000 ML IV ONE (07:21)
[2018-04-30 07:41] LABS: PLATELET COUNT 145 10^3/uL (150-400)
[2018-04-30 08:54] VITALS: BP 139/78
[2018-04-30] MEDS ORDERED: ONDANSETRON 4MG PREPACK#2 BTL TAKEHOME ONE (09:14)
[2018-04-30] MEDS ORDERED: ALBUTEROL INH PREPACK MDI TAKEHOME ONE (09:14)
== END 2018-04-30 09:24 | disposition home or self-care (01) ==
DX: J40 Bronchitis, not specified as acute or chronic (principal); I10 Essential (primary) hypertension; E86.9 Volume depletion, unspecified; Z86.19 Personal history of other infectious and parasitic diseases; F17.200 Nicotine dependence, unspecified, uncomplicated
CPT/HCPCS: 96374; J2405